=== PATIENT | male | born 1975 | race Caucasian/White ===

== ENCOUNTER 2017-01-20 10:26 | Emergency (ER) | payer OTHER ==
[~2017-01-20] VITALS: Ht 193 cm; Wt 87.6 kg
[~2017-01-20 10:26] MED LIST: BUPR8MIS SL; CHLO1TAB15 PO; CRAN1CAP15 PO; MULTTAB58 PO; NUTR750C PO; TRAZ50TA35 PO; ZOLP10TA PO
[2017-01-20 10:36] VITALS: Ht 193 cm; Wt 87.6 kg
[2017-01-20 11:32] LABS: URINE APPEARANCE CLEAR (CLEAR); URINE BILIRUBIN NEG (NEG); URINE COLOR YELLOW; URINE NITRITE NEG (NEG); URINE SPECIFIC GRAVITY 1.018 (1.000-1.030); UROBILINOGEN NEG (NEG); ZZUR CULT IF INDIC CLEAN CATCH NO
[2017-01-20 11:33] LABS: MANUAL MICROSCOPIC REQUIRED? NO; REVIEW REQ? NO
[2017-01-20 11:54] LABS: BENZODIAZEPINE, URINE NEG (NEG); COCAINE,URINE NEG (NEG); PHENCYCLIDINE, URINE NEG (NEG)
[2017-01-20 12:20] LABS: CALCIUM 9.3 mg/dl (8.5-10.1); CREATININE 0.92 mg/dl (0.60-1.40); POTASSIUM 3.9 mmol/L (3.5-5.1)
[2017-01-20 12:31] LABS: THYROID STIMULATING HORMONE 1.06 uIu/ml (0.300-4.500)
[2017-01-20 12:39] LABS: MEAN CELL VOLUME 87.8 fL (80-100); MEAN CORPUSCULAR HEMOGLOBIN 32.2 pg (25-34); MEAN CORPUSCULAR HGB CONC 36.7 g/dl (32-36); MEAN PLATELET VOLUME 10.3 fL (7.4-10.4); PLATELET COUNT 97 K/uL (130-400); WHITE BLOOD COUNT 2.78 K/uL (4.8-10.8)
--- NOTE | 2017-01-20 13:13 | EMERGENCY ROOM VISIT NOTE ---
History Report prepared by Isidoro: Gertrude Paniagua Under the Supervision of: Dr. Sg Hernandez M.D. First contact with patient: 11:29 Chief Complaint: MENTAL HEALTH EVALUATION Stated Complaint: WANTS A PSYCH EVAL DONE History of Present Illness The patient is a 41 year old male who presents to the Emergency Room for a mental health evaluation. The patient has a history of Ativan abuse. He currently sees a drug and alcohol counselor. He saw this counselor today and admitted that he had taken Ativan yesterday. The patient states that he used to have a prescription for this medication, but no longer has one and gets the pills from his friend. He states that sometimes he gets overwhelmed and needs to take Ativan to help him calm down and think clearly. He has been under a lot of stress lately financially and starting a new job. He also states that his health problems associated with his Hepatitis C cause him anxiety. Today his drug and alcohol counselor asked him if he was suicidal. The patient denied any suicidal ideation. She asked him how he would kill himself and he said he would overdose on medications. She became concerned that he might act on this and sent him to the ED for further evaluation. The patient adamantly denies any SI or HI at this time. His agrees that he has been doing well. He has been suicidal in the past and they both state that he is very good about coming to the ED on his own for evaluation when he is feeling suicidal. Source of History: patient, spouse/significant other Onset: [employer] Position: other (mental health) Quality: other (anxiety/suicidal) Timing: constant Modifying Factors (Worsening): other (stress) Modifying Factors (Relieving): other (Ativan) Note: Pt adamantly denies SI or HI. Review of Systems See HPI for pertinent positives & negatives. A total of 10 systems reviewed and were otherwise negative. Past Medical & Surgical Medical Problems: (1) HTN (hypertension) (2) Kidney stone (3) Renal colic Surgical Problems: (1) H/O lithotripsy (2) History of renal stent Old medical records were reviewed. Nurse's notes were reviewed and I agree with. Family History No pertinent family history Social History Smoking Status: Former Smoker Alcohol Use: none Drug Use: marijuana Marital Status: Housing Status: lives with friends Occupation Status: employed Current/Historical Medications No Active Prescriptions or Reported Meds Allergies Coded Allergies: No Known Allergies (Verified , 04/07/16) Physical Exam Vital Signs Date Time Temp Pulse Resp B/P (MAP) Pulse Ox O2 Delivery O2 Flow Rate FiO2 01/20/17 13:44 36.7 82 18 111/77 97 01/20/17 13:25 82 18 111/77 97 Room Air 01/20/17 12:37 110 18 122/80 98 Room Air 01/20/17 10:36 36.7 114 18 121/80 98 Room Air Physical Exam General: Well developed well nourished non ill appearing cooperative young male in no acute distress, breathing comfortably on room air. Normal speech HEENT: Normal cephalic atraumatic. Pupils are equal round and reactive to light. Extraocular movements are intact. Oropharynx is pink with moist mucous membranes. No swelling of the mouth lips or tongue. Neck: Supple with a midline trachea. No meningeal signs or stiffness, no JVD or bruits. No Stridor. Chest: Clear to auscultation bilaterally. No wheezes or rhonchi. No increased work of breathing. Heart: regular rate and rhythm. Abdomen: Soft nontender, nondistended without rebound guarding or rigidity. Extremities: No cyanosis clubbing or edema. No calf tenderness or assymetry Spine/Back. Non tender to palpation. No CVA tenderness Skin: Good turgor without rashes. Neurologic exam: Cranial nerves two through 12 are intact. Motor and sensation are intact and symmetrical throughout. No tremor. Medical Decision & Procedures Laboratory Results 01/20/17 11:36 Red Blood Count 4.10, Mean Corpuscular Volume 87.8, Mean Corpuscular Hemoglobin 32.2, Mean Corpuscular Hemoglobin Concent 36.7, Mean Platelet Volume 10.3, Neutrophils (%) (Auto) 34.1, Lymphocytes (%) (Auto) 54.0, Monocytes (%) (Auto) 8.6, Eosinophils (%) (Auto) 2.9, Basophils (%) (Auto) 0.4, Neutrophils # (Auto) 0.95, Lymphocytes # (Auto) 1.50, Monocytes # (Auto) 0.24, Eosinophils # (Auto) 0.08, Basophils # (Auto) 0.01 01/20/17 11:36 Test 01/20/17 10:54 01/20/17 11:36 Urine Color YELLOW Urine Appearance CLEAR (CLEAR) Urine pH 6.0 (4.5-7.5) Urine Specific [place] 1.018 (1.000-1.030) Urine Protein NEG (NEG) Urine Glucose (UA) NEG (NEG) Urine Ketones NEG (NEG) Urine Occult Blood NEG (NEG) Urine Nitrite NEG (NEG) Urine Bilirubin NEG (NEG) Urine Urobilinogen NEG (NEG) Urine Leukocyte Esterase NEG (NEG) Urine Opiates Screen NEG (NEG) Urine Methadone, Qualitative NEG (NEG) Urine Barbiturates NEG (NEG) Urine Phencyclidine (PCP) Level NEG (NEG) Ur Amphetamine/Methamphetamine NEG (NEG) MDMA (Ecstasy) Screen NEG (NEG) Urine Benzodiazepines Screen NEG (NEG) Urine Cocaine Metabolite NEG (NEG) Urine Marijuana (THC) POS (NEG) White Blood Count 2.78 K/uL (4.8-10.8) Red Blood Count 4.10 M/uL (4.7-6.1) Hemoglobin 13.2 g/dL (14.0-18.0) Hematocrit 36.0 % (42-52) Mean Corpuscular Volume 87.8 fL (80-100) Mean Corpuscular Hemoglobin 32.2 pg (25-34) Mean Corpuscular Hemoglobin Concent 36.7 g/dl (32-36) Platelet Count 97 K/uL (130-400) Mean Platelet Volume 10.3 fL (7.4-10.4) Neutrophils (%) (Auto) 34.1 % Lymphocytes (%) (Auto) 54.0 % Monocytes (%) (Auto) 8.6 % Eosinophils (%) (Auto) 2.9 % Basophils (%) (Auto) 0.4 % Neutrophils # (Auto) 0.95 K/uL (1.4-6.5) Lymphocytes # (Auto) 1.50 K/uL (1.2-3.4) Monocytes # (Auto) 0.24 K/uL (0.11-0.59) Eosinophils # (Auto) 0.08 K/uL (0-0.5) Basophils # (Auto) 0.01 K/uL (0-0.2) RDW Standard Deviation 40.9 fL (36.4-46.3) RDW Coefficient of Variation 12.7 % (11.5-14.5) Immature Granulocyte % (Auto) 0.0 % Immature Granulocyte # (Auto) 0.00 K/uL (0.00-0.02) Nucleated RBC Absolute Count (auto) 0.03 K/uL (0-0) Nucleated Red Blood Cells % 0.9 % Anion Gap 6.0 mmol/L (3-11) Est Creatinine Clear Calc Drug Dose 131.0 ml/min Estimated GFR () 120.2 Estimated GFR (Non- 103.7 BUN/Creatinine Ratio 9.0 (10-20) Calcium Level 9.3 mg/dl (8.5-10.1) Total Bilirubin 0.5 mg/dl (0.2-1) Aspartate Amino Transf (AST/SGOT) 106 U/L (15-37) Alanine Aminotransferase (ALT/SGPT) 229 U/L (12-78) Alkaline Phosphatase 92 U/L (45-117) Total Protein 7.2 gm/dl (6.4-8.2) Albumin 3.6 gm/dl (3.4-5.0) Globulin 3.6 gm/dl (2.5-4.0) Albumin/Globulin Ratio 1.0 (0.9-2) Thyroid Stimulating Hormone (TSH) 1.060 uIu/ml (0.300-4.500) Salicylates Level < 1.7 mg/dl (2.8-20) Acetaminophen Level < 2 ug/ml (10-30) Ethyl Alcohol mg/dL < 3.0 mg/dl (0-3) Laboratory studies as stated above per my review. ED Course 1129: Past medical records reviewed. The patient was evaluated in room A7, and a complete history and physical examination were performed. 1339: I reassessed the patient at this time. He is feeling better and resting comfortably. I discussed the results and treatment plan with the patient. I answered all pertaining questions that he had. He expressed understanding and verbalized agreement. The patient will be discharged home. Medical Decision Differential diagnoses includes depression, anxiety, electrolyte or metabolic abnormality. This patient comes in as described above. He was placed in room A9. He was Sent over by his drug and alcohol counselor. He apparently has been using Ativan intermittently for anxiety. He also smokes marijuana. He adamantly denies suicidal or homicidal ideations. He says that he is stopping as he needs to get drug tested to get started on medications for his chronic hep C. He is here with his , who agrees and does not feel that he is a harm to himself or others. He denies states take any aspirin or Tylenol. He denies that he was trying to hurt himself. Blood work was obtained. he does have some mildly chronically low white counts but he had no fever or anything to suggest this is acute problem. He has no acute electrolyte or metabolic abnormalities. He has nothing to suggest acute toxicologic process. He does not appear to be withdrawing clinically. He was evaluated in the ER by our psychiatric case management team. The patient does not want to stay in the hospital and does not meet involuntary criteria. I encouraged him not to use any more benzodiazepines and do not use any other peoples medications. Return if :worsening of symptoms, any problems concerns. He is happy with the plan and discharged to home. He should follow-up with his doctor this week. Medication Reconcilliation Current Medication List: was personally reviewed by me Blood Pressure Screening Patient's blood pressure: Normal blood pressure Impression Primary Impression: Benzodiazepine misuse Additional Impression: Anxiety Scribe Attestation The scribe's documentation has been prepared under my direction and personally reviewed by me in its entirety. I confirm that the note above accurately reflects all work, treatment, procedures, and medical decision making performed by me. Departure Information Dispostion Home / Self-Care Prescriptions No Active Prescriptions or Reported Meds Referrals No Doctor, Assigned (PCP) Forms HOME CARE DOCUMENTATION FORM, IMPORTANT VISIT INFORMATION Patient Instructions My [facility] Additional Instructions Rest. Drink plenty of fluids. Return if: Worsening of symptoms, thoughts of hurting himself or others, any new problems or concerns. Do not take any medications that are not prescribed review and do not take any Ativan or alcohol. Follow-up with your doctor this week for recheck Problem Qualifiers
[2017-01-20 13:14] LABS: BASO % 0.4 %; BASO ABS # 0.01 K/uL (0-0.2); COMPLETE YES; EOS % 2.9 %; MONO % 8.6 %; NEUT % 34.1 %
[2017-01-20 13:27] LABS: ACETAMINOPHEN < 2 ug/ml (10-30)
[2017-01-20 13:44] VITALS: BP 111/77; PULSE 82; TEMP 36.7; O2SAT 97
[2017-01-26 14:34] LABS: SYNTHETIC CANNABINOIDS QL URIN NEGATIVE (Negative)
== END 2017-01-20 13:44 | disposition home or self-care (01) ==
LOC: C.EDB 10:29 → C.EDA 13:44
DX: F13.10 Sedative, hypnotic or anxiolytic abuse, uncomplicated (principal); F41.9 Anxiety disorder, unspecified; B19.20 Unspecified viral hepatitis C without hepatic coma; I10 Essential (primary) hypertension; Z87.442 Personal history of urinary calculi; Z87.891 Personal history of nicotine dependence

== ENCOUNTER → 2017-02-01 | Outpatient (CLI) | payer OTHER ==
[2017-02-01 16:42] LABS: HEMATOCRIT 37.4 % (42-52); MEAN CELL VOLUME 88.6 fL (80-100); MEAN CORPUSCULAR HEMOGLOBIN 32.5 pg (25-34); MEAN CORPUSCULAR HGB CONC 36.6 g/dl (32-36); MEAN PLATELET VOLUME 10.4 fL (7.4-10.4); PLATELET COUNT 108 K/uL (130-400); RED BLOOD COUNT 4.22 M/uL (4.7-6.1); WHITE BLOOD COUNT 3.97 K/uL (4.8-10.8)
[2017-02-01 16:54] LABS: PROTHROMBIN TIME (PATIENT) 10.8 SECONDS (9.0-12.0)
[2017-02-01 17:04] LABS: COMPLETE YES; LARGE GRANULAR LYMPH ABSOLUTE 0.07 K/uL; LARGE GRANULAR LYMPHOCYTE % 1.7 %; LYMPH ABS # 1.79 K/uL (1.2-3.4); LYMPHOCYTE % 45.2 %; NEUTROPHILS % 35.7 %; VARIANT LYM ABS # 0.38 K/uL; VARIANT LYMPHOCYTE % 9.6 %
[2017-02-01 17:13] LABS: ALT/SGPT 275 U/L (12-78); BLOOD UREA NITROGEN 12 mg/dl (7-18); BUN/CREATININE RATIO 16.1 (10-20); CALCIUM 9.1 mg/dl (8.5-10.1); CARBON DIOXIDE 26 mmol/L (21-32); CHLORIDE 108 mmol/L (98-107); CREATININE 0.77 mg/dl (0.60-1.40); GLUCOSE 101 mg/dl (70-99); POTASSIUM 4.1 mmol/L (3.5-5.1); SODIUM 140 mmol/L (136-145)
[2017-02-01 17:16] LABS: ALB/GLOB RATIO 1.1 (0.9-2); ALKALINE PHOSPHATASE 90 U/L (45-117); AST/SGOT 132 U/L (15-37)
[2017-02-05 02:19] LABS: AFP TUMOR MARKER SERUM 1.8 NG/ML (<6.1); HEPATITIS C VIRAL RNA BY PCR 1050000 IU/ML (<15); HEPATITIS C VIRAL RNA(LOG) PCR 6.02 LOG IU/ML (<1.18); LIVER FIBR APOLIPOPROTEIN A-1 94 mg/dL (94-176); LIVER FIBROS ALPHA-2-MACROGLOB 257 mg/dL (106-279); LIVER FIBROSIS GGT 38 U/L (3-95); NECROINFLAMMATION ACT GRADE A3; NECROINFLAMMATION ACT SCORE 0.92
== END | disposition home or self-care (01) ==
LOC: C.LAB 15:27
PROVIDERS: ATTEND Internal Medicine Infectious Disease
DX: B19.20 Unspecified viral hepatitis C without hepatic coma (principal)

== ENCOUNTER → 2017-06-14 | Outpatient (CLI) | payer OTHER ==
--- NOTE | 2017-06-14 14:22 | DIAGNOSTIC IMAGING REPORT ---
LEFT SHOULDER MRI HISTORY: LEFT SHOULDER PAIN TECHNIQUE: Multiplanar multisequence MRI of the left shoulder was performed without contrast. COMPARISON STUDY: Left shoulder 03/02/2017. FINDINGS: AC joint: Intact Rotator cuff: Postoperative changes seen within the teres minor tendon which is diffusely thinned. No evidence for full-thickness tear of the teres minor tendon. There is mild thickening and increased signal within the distal infraspinatus tendon suggestive of a tendinopathy. Focal partial bursal surface tear at the distal supraspinatus tendon which measures 1.4 x 0.6 cm. Mass effect along the subscapularis tendon due to the deformed glenoid. However, there is no evidence for tear of the subscapularis tendon. Labrum: A normal labrum is not identified. This is consistent with circumferential maceration/tear. Biceps tendon: Focal area of increased signal in the proximal long head of the biceps tendon consistent with a mild tendinopathy. Bones/cartilage: Deformity and widening of the glenoid as well as the articular surface of the humeral head with a large inferior osteophyte at the humeral head. There are subchondral cystic change within the humeral head anchor adenoid. This is consistent with severe osteoarthritis. There is full-thickness scar is loss throughout the majority of the glenoid and humeral head. Subchondral marrow edema at the glenoid and humeral head also likely represents the long-standing degenerative change. Miscellaneous: Small joint effusion. IMPRESSION: 1. Severe osteoarthritis within the glenohumeral joint as described above with deformity of the glenoid/humeral head and large marginal osteophytes. 2. Postoperative changes within the teres minor tendon which is diffusely thinned. 3. Distal infraspinatus tendinopathy. 4. Partial bursal surface tear at the distal supraspinatus tendon. 5. Circumferential maceration/tear of the labrum. Electronically signed by: Osorio Elizabeth M.D. 06/14/2017 2:21 PM Dictated Date/Time: 06/14/2017 2:09 PM
== END ==
LOC: C.MRIBC 13:16
PROVIDERS: ATTEND Orthopaedic Surgery
DX: M25.512 Pain in left shoulder (principal)